=== PATIENT | male | born 1985 | race Caucasian/White ===

== ENCOUNTER → 2016-06-23 | Day surgery (SDC) | payer BC ==
[~2016-06-23] MED LIST: Buffered Lidocaine 1% SYR 3ML* 3 ML/SYR SYRINGE INTRADERM ONE; Buffered Lidocaine 1% SYR 3ML* 3 ML/SYR SYRINGE ONE; Dexamethasone IV* 4 MG/ML 1 ML (4 MG) IV SLOW PU ONE; Dexamethasone IV* 4 MG/ML 1 ML (4 MG) ONE; Famotidine IV* 10 MG/ML 2 ML (20 mg) IV ONE; Famotidine IV* 10 MG/ML 2 ML (20 mg) ONE; Lidocaine 4% TOPICAL* 50 ML TOP.SOLN ONE; Midazolam* 1 MG/ML 2 ML VIAL (2 MG) ONE; Ondansetron INJ* 2 MG/ML VIAL IV PRN; Ondansetron INJ* 2 MG/ML VIAL ONE; Oxymetazoline 0.05% NASAL SPR* 15 ML BTL ONE; Propofol* 10 MG/ML 20 ML BTL IV PUSH ONE; Succinylcholine* 20 MG/ML 10 ML VIAL ONE; fentaNYL* 50 MCG/ML 2 ML VIAL (100 MCG VIAL) IV PRN; fentaNYL* 50 MCG/ML 2 ML VIAL (100 MCG VIAL) ONE
[2016-06-23 14:13] VITALS: BP 119/66
--- NOTE | 2016-06-23 23:10 | OP ---
DATE OF OPERATION: 06/23/16 - SDS DATE OF : 83 SURGEON: Reji Dodge MD ANESTHESIOLOGIST: Jameson Soto MD ANESTHESIA: General endotracheal anesthesia. PREOP DIAGNOSIS: Right vocal cord cyst. POSTOP DIAGNOSIS: Right vocal cord cyst. OPERATIVE PROCEDURE: Microlaryngoscopy with excision of right vocal cord cyst with micro flaps under general endotracheal anesthesia. COMPLICATIONS: None. DISPOSITION: Good. SPECIMEN: Contents of right vocal cord cyst. DESCRIPTION OF PROCEDURE: The patient was taken to the operating room and placed in the supine position on the operating room table. General anesthesia was induced and he was orotracheally intubated, turned and draped for the surgery. was placed in upper teeth and the laryngoscope was inserted and found a suspension cyst and the microscope was brought in. He had what appeared to be a cystic structure in the mid membranous vocal cord on the right side with some feeding vessels over it, a little discoloration, potentially hemosiderin staining of the vocal cord. I used a Zeitels needle to inject some saline to elevate the mucosa and then used a sickle knife to make a mucosal incision just lateral to what I thought was the lateral aspect of the cyst. I used some dissectors to elevate the mucosal flap, retracted and then dissected out, which was fibrofatty material out of the cavity. I then used the dissectors to break up what appeared to be some scar tissue within this cavity. I redraped the flap. There was still some irregularity in the mucosal edge, but it appeared to be ballotable once when palpated so that I am confident that it will retract in. Cottonoids impregnated with oxymetazoline and 4% lidocaine was used to anesthetize and for hemostasis. The patient tolerated the procedure well, no complications, transferred to the recovery room in stable condition. [id number]/[facility] #: [id number] DENNIS
== END | disposition home or self-care (01) ==
LOC: OR 09:19
PROVIDERS: ATTEND Otolaryngology
DX: J38.7 Other diseases of larynx (principal); R49.0 Dysphonia; Z87.891 Personal history of nicotine dependence
CPT/HCPCS: 88304; A9270-GY; J0330; J1100; J2250; J2405; J2704; J3010